=== PATIENT | male | born 1975 | race Caucasian/White ===

== ENCOUNTER 2020-07-03 13:02 | Emergency (ER) | payer OTHER ==
[~2020-07-03] VITALS: Ht 185.4 cm; Wt 110.2 kg
[2020-07-03] MEDS ORDERED: LIPITOR20 MG PO (13:27)
[2020-07-03] MEDS ORDERED: JANUMET 50-1,01 EACH PO (13:28)
[2020-07-03] MEDS ORDERED: COZAAR25 MG PO (13:28)
[2020-07-03] MEDS ORDERED: INTESTINEX680 M1 PO (16:49)
== END 2020-07-03 16:58 | disposition home or self-care (01) ==
LOC: ER 13:02
DX: K52.89 Other specified noninfective gastroenteritis and colitis (principal); Z11.52 Encounter for screening for COVID-19